=== PATIENT | female | born 1965 ===

== ENCOUNTER 2021-03-18 11:51 | Day surgery (SDC) | payer OTHER ==
[~2021-03-18] VITALS: Ht 160 cm; Wt 102.3 kg
[~2021-03-18 11:51] MED LIST: HYDACE5 PO; IBUP200 PO; NAPR550 PO
--- NOTE | 2021-03-18 12:23 | NUR ---
03/18/21 1223 Saritha Ferris TETRACAINE DROP TO LEFT EYE AT 1216 AND PLEDGET LEFT EYE AT 1218 BY [facility].CB
--- NOTE | 2021-03-18 13:32 | NUR ---
03/18/21 1332 Pretty Shea BLUE USED LOT#[id number]
== END 2021-03-18 14:10 | disposition home or self-care (01) ==
LOC: ORSCSDS 11:51
PROVIDERS: Ophthalmology
PROC: 08RK3JZ Replacement of Left Lens with Synthetic Substitute, Percutaneous Approach (ICD-10-PCS; principal; 2021-03-18 13:30)
DX: H25.12 Age-related nuclear cataract, left eye (principal); E66.01 Morbid (severe) obesity due to excess calories; Z68.39 Body mass index [BMI] 39.0-39.9, adult
CPT/HCPCS: J2001; J2250; J3010; J3301; J7040; V2632